=== PATIENT | male | born 1960 | race Two or more races ===

== ENCOUNTER 2025-06-20 08:30 | Emergency (ER) | payer MEDICAID, SELFPAY ==
[2025-06-20 08:35] VITALS: BP 131/81; PULSE 85; RESP 18; TEMP 37.1; O2SAT 95
--- NOTE | 2025-06-20 08:45 | XR_ITS ---
Examination: CT abdomen and pelvis without contrast. Coronal 3-D reconstructions. Sagittal 2-D reconstructions. Date and time of exam:June 20, 2025, 0909 hrs. Indications: Right-sided flank pain beginning 2 weeks ago, history kidney stones CTDI: vol (mGy): 8.81 DLP: (mGycm): 499 Technique: Axial images of the abdomen have been obtained, 3 mm slice thickness Intravenous contrast material has not been administered. Low dose protocols were performed. One or more of the following dose reduction techniques were used; automated exposure control, adjustment of the mA and/or KV according to patient size, use of iterative reconstruction technique. Findings: No focal liver or splenic lesions No gallstones No pancreatic or adrenal mass Perinephric stranding. No current renal or ureteral calculi, no hydronephrosis Normal appendix No bowel obstruction Colonic diverticulosis Contracted urinary bladder Moderate disc narrowing L5-S1 Impression: Perinephric stranding, consider urinary tract infection No renal or ureteral calculi, no hydronephrosis Normal appendix
[2025-06-20 09:18] LABS: Collection Type, Urine Clean Catch
[2025-06-20 09:27] LABS: Bilirubin,Urine Negative (Negative); Blood,Urine Negative (Negative); Clarity,Urine Clear (Clear/Hazy); Color,Urine Yellow (Lt Yel-Yel); Glucose, Urine Negative (Negative); Ketones,Urine Negative (Negative); Leukocyte Esterase,Urine Negative (Negative); Nitrite,Urine Negative (Negative); PH,Urine 5.5 (5.0-7.0); Protein,Urine Negative (Neg - Trace); RBC,Urine 5 /hpf (0-3); Specific Gravity,Urine 1.031 (1.001-1.035); Squamous Epithelial Cell,Urine < 1 /hpf (0-5); Urobilinogen,Urine Negative mg/dL (0.0-1.0); WBC,Urine 1 /hpf (0-5)
[2025-06-20] MEDS: KETOROLAC INJ 30 MG/ML VIAL IM (09:31)
--- NOTE | 2025-06-20 09:49 | EDNOTE_ITS ---
<Statement entered by Radha Eid MD - 06/20/25 14:58> As co-signing physician, I was present and available for consult prn. I concur with the plan and care as documented by the midlevel provider. ED Back Injury Pain RME/HPI General Chief Complaint: Back Pain/Injury Stated Complaint: RIGHT FLANK PAIN X2 WKS Time Seen by Provider: 06/20/25 08:38 Arrival date/time: 06/20/25 08:30 Limitations: no limitations RME / HPI RME / HPI Narrative: 65-year-old male with right flank pain for 2 weeks. States thinks it might be related to a twisting motion he did around that time. However Tylenol not touching it at home. States went to PCP and was told he needed chiropractor had a session but still feels off. No loss of bowel or bladder control. Of note does have history of kidney stones approximately 20 years ago states not sure if it is that or just regular back pain. States darker than normal urine but no burning with urination. no fever. Related Data Previous Rx's ?Medication ?Instructions ?Recorded IBU 800 mg tablet (ibuprofen) 800 mg PO Q6H PRN pain # 30 tabs 06/20/25 baclofen 10 mg tablet 10 mg PO BID #20 tabs ciprofloxacin HCl 500 mg tablet 500 mg PO Q12H 10 days #20 tabs 06/20/25 (Cipro) tamsulosin 0.4 mg capsule (Flomax) 0.4 mg PO QDAY 1 mo nth #30 caps 06/20/25 Allergies Allergy/AdvReac Type Severity Reaction Status Date / Time No Known Allergies Allergy Verified 06/20/25 08:32 Review of Systems Review of Systems Systems Reviewed: All systems reviewed, normal except as documented Constitutional Constitutional: Denies fever(s) Gastrointestinal Gastrointestinal: Reports as per HPI Genitourinary Genitourinary: Reports as per HPI Musculoskeletal Musculoskeletal: Reports as per HPI ED Exam General Limitations: Present no limitations General appearance: Present alert and in no apparent distress Eye Eye exam: Present normal appearance, PERRL and EOMI Respiratory Respiratory exam: Present normal lung sounds bilaterally Cardiovascular Cardiovascular exam: Present regular rate, normal rhythm and normal heart sounds Abdominal Exam Abdominal exam: Present soft and normal bowel sounds Extremities Exam Extremities exam: Present normal inspection and full ROM Back Exam Back exam: Present full ROM, tenderness (lumbar right side) and CVA tenderness (R) Psychiatric Psychiatric exam: Present normal affect and normal mood Skin Skin exam: Present warm, dry, intact and normal color Course Quality Measures none Orders Category Date Time Status CT abdomen pelvis wo con Stat Exams 06/20/25 08:45 Completed CBC Stat Lab 06/20/25 09:52 Completed CMP [Comprehensive Metabolic Panel] Stat Lab 06/20/25 09:52 Completed Drug Screen,Urine Stat Lab 06/20/25 08:59 Completed UA [Urinalysis] Stat Lab 06/20/25 08:59 Completed Ketorolac Inj [Toradol Inj] Med 06/20/25 08:45 Discontinued 30 mg IM X1 ONE Reevaluation(s) Reevaluation #1: pain free asking to go home, gave copy of ct scan report for pcp Time: 10:27 Vital Signs Vital signs: Vital Signs Temperature 98.8 F 06/20/25 08:35 Pulse Rate 85 06/20/25 08:35 Respiratory Rate 18 06/20/25 08:35 Blood Pressure 131/81 H 06/20/25 08:35 Pulse Oximetry (%) 95 06/20/25 08:35 Oxygen Delivery Method Room Air 06/20/25 08:35 Back Pain / Injury MDM Narrative MDM Narrative:: Extensive workup due to patient's age to rule out stones versus lower back injury. Workup shows arthritis but otherwise no stones. CT did suggest possible UTI therefore treated with complicated UTI treatment Nasir Linder,. Patient was found to have methamphetamine in his system. Follow-up with PCP return to ER symptoms worsen Patient data External records reviewed:: [facility] previous records Clinical information provided by:: patient Social determinants that could affect healthcare access:: substance use Patient has the following chronic illnesses:: kidney stones How is presenting disease/condition affected by chronic disease/condition?: exacerbated by Evaluation data The following diagnostics were reviewed and interpreted by me:: lab results and radiology exam(s) Lab and/or radiology exams considered but not ordered:: X-ray of chest was considered however it does not change the course of treatment today as pain is in the lumbar area Interpretation Summary: CBC CMP within normal limits UA did show some blood and CT did suggest arthritis along with possible UTI therefore treated. Drug tox did show methamphetamine in the system Medications / Prescriptions Medications or Prescriptions considered but not ordered:: Narcotics were considered however given drug abuse opted against Medication administrations:: Medication Administration History Discontinued Medications Ketorolac Tromethamine (Ketorolac Inj 30 Mg/Ml Vial) 30 mg IM X1 ONE Stop: 06/20/25 08:46 Last Admin: 06/20/25 09:31 Dose: 30 mg Documented By: CIPRIANO See above Consultations Consultation(s) initiated? 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 Discharge instructions specifically effects, indications for sooner follow up or return to the emergency department, and the expected course of current diagnosis. Patient condition: Stable Discharge Plan Plan Patient Disposition: HOME (Self Care) Discharge Disposition comment: Follow-up with PCP Prescriptions/Referrals Prescriptions/Med Rec: New baclofen 10 mg tablet 10 mg PO BID Qty: 20 0RF ibuprofen [IBU] 800 mg tablet 800 mg PO Q6H PRN (Reason: pain) Qty: 30 0RF ciprofloxacin HCl [Cipro] 500 mg tablet 500 mg PO Q12H 10 Days Qty: 20 0RF tamsulosin [Flomax] 0.4 mg capsule 0.4 mg PO QDAY 30 Days Qty: 30 0RF Referrals: Farooq Forte PA-C [Primary Care Provider] - In 1 week Problem List Clinical Impression: Lumbar radiculopathy, Acute UTI Patient/Caregiver Discharge Instructions Education Materials: ED Back Care Tips Print Language: Korean Stand Alone Forms: Cara Award Info., Patient Portal Info Letter PA/SELIN Supervising Physician PA/SELIN Supervising Physician: Dr. Eid
[2025-06-20 10:31] LABS: Amphetamine/Methamp Scrn,U Positive (Negative); Barbiturate Screen,Urine Negative (Negative); Benzodiazepines Screen,Urine Negative (Negative); Benzoylecgonine Screen, Ur Negative (Negative); Fentanyl Screen,Urine Negative (Negative); Opiate Screen,Urine Negative (Negative); THC Screen,Urine Negative (Negative)
[2025-06-20 10:41] LABS: Basophils # (Auto) 0.0 Thou/mm3 (0.0-0.2); Basophils % (Auto) 1 % (0-2.5); Eosinophils # (Auto) 0.1 Thou/mm3 (0.0-0.5); Eosinophils % (Auto) 2 % (0-10); Hematocrit 45.4 % (41.0-53.0); Hemoglobin 15.6 g/dL (13.5-16.0); Immature Granulocytes Auto 0.03 Thou/mm3 (0.00-0.00); Lymphocytes # (Auto) 1.4 Thou/mm3 (1.0-4.8); Lymphocytes % (Auto) 26 % (10-50); Mean Corpuscular HGB Conc 34.4 g/dl (31.0-37.0); Mean Corpuscular Hemoglobin 32.5 pg (25.0-35.0); Mean Corpuscular Volume 95 fL (80-100); Monocytes # (Auto) 0.5 Thou/mm3 (0.0-0.8); Monocytes % (Auto) 9 % (0-12); Neutrophils # (Auto) 3.3 Thou/mm3 (1.8-7.7); Neutrophils % (Auto) 62 % (37-80); Nucleated Red Blood Cell # 0.00 Thou/mm3 (0.00-0.00); Nucleated Red Blood Cell % 0 /100 WBC (0); Platelet Count 269 Thou/mm3 (140-440); RDW Standard Deviation 45.2 fL (35.1-43.9); Red Blood Count 4.80 Miln/mm3 (4.50-5.90); White Blood Count 5.3 Thou/mm3 (3.8-10.6)
[2025-06-20 10:42] LABS: Alanine Aminotransferase 22 U/L (10-49); Albumin, Serum 4.3 gm/dL (3.4-4.8); Albumin/Globulin Ratio 2.0 (1.2-2.2); Alkaline Phosphatase 93 U/L (46-116); Anion Gap 8 (7-16); Aspartate Amino Transferase 18 U/L (0-34); BUN/Creatinine Ratio 9 Ratio (12-20); Bilirubin,Total 0.9 mg/dL (0.3-1.2); Blood Urea Nitrogen 8 mg/dL (9-23); Calcium 9.6 mg/dL (8.3-10.6); Calcium (Corrected) 9.6 mg/dL (8.5-10.1); Carbon Dioxide 26.1 mMol/L (20.0-31.0); Chloride 105 mMol/L (98-107); Creatinine (Component) 0.9 mg/dL (0.6-1.3); Globulin 2.2 gm/dL (2.3-3.5); Glucose 88 mg/dL (74-106); Osmolality,Calculated 274 (275-295); Potassium 4.4 mMol/L (3.4-5.1); Sodium 139 mMol/L (136-145); Total Protein 6.5 gm/dL (5.7-8.2); eGFR > 60 See Note
== END 2025-06-20 11:06 | disposition home or self-care (01) ==
PROVIDERS: Physician Assistant; Emergency Provider Emergency Medicine; PCP Physician Assistant
DX: M54.16 Radiculopathy, lumbar region (principal); N39.0 Urinary tract infection, site not specified
CPT/HCPCS: 36415; 74176; 80053; 80307; 81001; 85025; 96372; 99283; J1885